=== PATIENT | female | born 1985 | race Caucasian/White ===

== ENCOUNTER 2024-03-16 02:15 | Emergency (ER) | payer SELFPAY ==
[2024-03-16] MEDS: Morphine 4 MG/ML Syringe IVPUSH ONE (03:14)
[2024-03-16] MEDS: Ketorolac 30 MG/ML SDV IVPUSH ONE (03:14)
[2024-03-16] MEDS: Ondansetron 4 MG/2 ML SDV IVPUSH ONE (03:21)
== END 2024-03-16 04:49 | disposition home or self-care (01) ==
LOC: MW.ED 02:15
DX: N13.2 Hydronephrosis with renal and ureteral calculous obstruction (principal); Z79.899 Other long term (current) drug therapy
CPT/HCPCS: 74176; 81025; 96374; 96375; 99284; J1885; J2270; J2405